=== PATIENT | male | born 1995 | race Caucasian/White ===

== ENCOUNTER 2019-06-27 17:03 | Emergency (ER) | payer BC ==
[~2019-06-27] VITALS: Ht 170.2 cm; Wt 81.9 kg
[2019-06-27] MEDS ORDERED: LORazepam 1MG TABLET ONE (17:30)
--- NOTE | 2019-06-27 17:54 | NUR ---
PT HAS CO ANXIETY, SOB. EKG DONE. PT IS IN AFIB 100, MD AWARE. PT DENIES CP, COUGH, NO N/V/D. PT IS NOT IN DISTRESS. RESTING COMFORTABLE. VSS STABLE. PT STATES HE HAD AN ANXIETY ATTACK AT WORK AND FELT PALPIATIONS ALL DAY. 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
[2019-06-27] MEDS ORDERED: LORazepam 1MG TABLET PO ONE (18:00)
[2019-06-27] MEDS ORDERED: ETOMIDATE 20 MG/10 ML ONE (18:05)
[2019-06-27 18:14] LABS: BASOPHILS # (AUTO) 0.04 x10^3/uL (0-0.1); BASOPHILS % (AUTO) 1 % (0-1); EOSINOPHILS # (AUTO) 0.06 x10^3/uL (0-0.4); EOSINOPHILS % (AUTO) 1 % (1-7); LYMPHOCYTES # (AUTO) 2.27 x10^3/uL (1-3.4); LYMPHOCYTES % (AUTO) 33 % (22-44); MD NO; MEAN CORPUSCULAR HEMOGLOBIN 31.1 pg (27.5-34.5); MEAN CORPUSCULAR HGB CONC 33.8 g/dL (33.2-36.2); MEAN CORPUSCULAR VOLUME 91.9 fL (81-97); MONOCYTES # (AUTO) 0.57 x10^3/uL (0.2-0.8); MONOCYTES % (AUTO) 8 % (2-9); NEUTROPHILS % (AUTO) 58 % (42-75); PLATELET COUNT 310 x10^3/uL (130-400); RED BLOOD COUNT 5.04 x10^6/uL (4.38-5.82); RED CELL DISTRIBUTION WIDTH 12.9 % (9.4-14.8)
[2019-06-27] MEDS ORDERED: MIDAZOLAM 1 MG/ML, 2ML ONE (18:22)
[2019-06-27 18:24] LABS: ANION GAP 3 mmol/L (5-15); CALCIUM 8.6 mg/dL (8.5-10.1); CHLORIDE 109 mmol/L (98-107); CREATININE 0.98 mg/dL (0.7-1.3)
[2019-06-27 18:29] LABS: FREE T4 (FREE THYROXINE) 0.96 ng/dL (0.76-1.46); TROPONIN I < 0.015 ng/mL (0.000-0.045)
[2019-06-27] MEDS ORDERED: METOPROLOL SUCCINATE 25 MG TAB.ER.24H PO ONE (18:30)
--- NOTE | 2019-06-27 18:30 | NUR ---
PT TOLERATED PROCEDURAL SEDATION AND CARDIOVERSION WELL. VSS, CONVERTED TO NSR 70S 10 MG ETOMIDATE GIVEN
[2019-06-27] MEDS ORDERED: METOPROLOL TARTRATE 25 MG TAB ONE ×2 (18:45→19:06)
[2019-06-27 18:46] LABS: C-REACTIVE PROTEIN, QUANT 0.2 mg/dL (0.02-0.49)
[2019-06-27 19:27] VITALS: BP 119/71
--- NOTE | 2019-06-27 19:30 | NUR ---
MEDICATED PER ORDERS, PT DOING WELL, NO COMPLAINTS OF PAIN, NO SOB OR CHEST PAIN. PLAN TO DC SOON
[2019-06-27 19:36] LABS: HCT (SEDRATE) 46.3 % (39.2-51.8)
--- NOTE | 2019-06-27 19:44 | NUR ---
Patient/Caregiver given discharge instructions and they have confirmed that they understand the instructions. Patient ambulatory with steady gait.
== END 2019-06-27 20:00 | disposition home or self-care (01) ==
LOC: ED 18:10
DX: I48.91 Unspecified atrial fibrillation (principal)
CPT/HCPCS: 36415; 71045; 80048; 82040; 82550; 83735; 84439; 84443; 84484; 85025; 85651; 86140; 92960; 93005; 99285

== ENCOUNTER 2019-07-08 13:51 | Outpatient (CLI) | payer BC | END 2019-07-08 23:59 | disposition home or self-care (01) | LOC: CVU 13:51 | PROVIDERS: ATTEND Internal Medicine Cardiovascular Disease | DX: I34.0 Nonrheumatic mitral (valve) insufficiency (principal) | CPT/HCPCS: 93306 ==

== ENCOUNTER 2020-02-21 20:55 | Emergency (ER) | payer BC ==
[~2020-02-21] VITALS: Ht 170.2 cm; Wt 76.4 kg
[2020-02-21 20:57] VITALS: BP 136/93
--- NOTE | 2020-02-21 21:18 | NUR ---
pt to room 25, via w/c, ambulates steady. calm and cooperative, placed on cr monitor, MD to bedside to eval.
[2020-02-21] MEDS ORDERED: OXYcodone/APAP 5/325MG TABLET ONE (21:45)
--- NOTE | 2020-02-21 21:56 | NUR ---
pt d/c'd. a&ox4, meds given, and discharge instructions given and understood. pt ambulatory
[2020-02-21] MEDS ORDERED: OXYcodone/APAP 5/325MG TABLET PO ONE (22:00)
== END 2020-02-21 21:58 | disposition home or self-care (01) ==
LOC: ED 21:44
DX: K05.00 Acute gingivitis, plaque induced (principal); K08.89 Other specified disorders of teeth and supporting structures; R05 Cough; R07.89 Other chest pain; R50.9 Fever, unspecified; I44.4 Left anterior fascicular block
CPT/HCPCS: 93005; 99283